=== PATIENT | female | born 1975 | race Two or more races ===

== ENCOUNTER 2025-01-11 19:37 | Emergency (ER) | payer OTHER ==
[~2025-01-11] VITALS: Ht 154.9 cm; Wt 56.7 kg
[2025-01-11] MEDS ORDERED: ALENDRONATE SOD70 MG PO (19:48)
[2025-01-11] MEDS ORDERED: SYNTHROID50 MCG PO (19:48)
[2025-01-11] MEDS ORDERED: KETOROLAC TROMETHAMINE 60 MG VIAL IM ONE ×2 (20:30→20:36)
[2025-01-11] MEDS ORDERED: ORPHENADRINE CITRATE 30 MG/ML AMPUL IM ONE (20:30)
[2025-01-11] MEDS ORDERED: ORPHENADRINE CITRATE 30 MG/ML AMPUL ONE (20:36)
[2025-01-11 20:53] LABS: BASO % 0.5 % (0.1-1.2); EOS # 0.10 (0.04-0.54); EOS % 1.8 % (0.7-7.0); LYMPH # 1.87 (1.18-3.74); LYMPH % 33.4 % (19.3-53.1); MEAN PLATELET VOLUME 11.30 fl (9.4-12.4); MONO # 0.52 (0.24-0.82); MONO % 9.3 % (4.7-12.5); NEUT # 3.07 (1.56-6.13); NEUT % 54.8 % (34.0-71.1); RED CELL DISTRIBUTION WIDTH 12.4 % (11.6-14.4)
[2025-01-11 21:35] LABS: INR 0.97
[2025-01-11 21:40] LABS: ALT/SGPT 55.0 U/L (12-78); AST/SGOT 35.0 U/L (15-37); BILIRUBIN TOTAL 0.27 mg/dL (0.3-1.2); BUN CREA RATIO 18.0 (7.0-25.0); CREATININE SERUM 0.66 mg/dL (0.55-1.02); GFR 94.42; GLOBULINA 3.6 G/DL (2.4-3.5); GLUCOSE FASTING 104.0 mg/dL (65-100); OSMOLALITY SERUM 285.0 MOSM/KG (275-295)
[2025-01-11] MEDS ORDERED: BACTRIM DS TAB1 EACH PO (22:34)
[2025-01-11] MEDS ORDERED: PEPCID AC20 MG PO (22:34)
[2025-01-11] MEDS ORDERED: NORFLEX100MG PO (22:34)
== END 2025-01-11 22:42 | disposition home or self-care (01) ==
LOC: ER 19:37
PROVIDERS: General Practice
DX: R10.2 Pelvic and perineal pain (principal); Z88.0 Allergy status to penicillin; M19.90 Unspecified osteoarthritis, unspecified site; E03.8 Other specified hypothyroidism; I11.9 Hypertensive heart disease without heart failure